=== PATIENT | male | born 1965 | race Hispanic/Latino ===

== ENCOUNTER 2020-12-14 23:55 | Emergency (ER) | payer SELFPAY | END 2020-12-14 23:56 | disposition home or self-care (01) | LOC: ED 23:55 | DX: R06.02 Shortness of breath (principal); Z53.21 Procedure and treatment not carried out due to patient leaving prior to being seen by health care provider ==

== ENCOUNTER 2020-12-15 12:09 | Emergency (ER) | payer SELFPAY ==
[2020-12-15 14:07] VITALS: BP 118/56
== END 2020-12-15 16:50 ==
LOC: ED 12:09
DX: E11.9 Type 2 diabetes mellitus without complications (principal); Z53.21 Procedure and treatment not carried out due to patient leaving prior to being seen by health care provider